=== PATIENT | female | born 1945 | race Caucasian/White ===

== ENCOUNTER 2017-10-14 12:41 | Outpatient (CLI) | payer MEDICARE, OTHER, SELFPAY ==
[2017-10-14] VITALS (7 sets, daily range): BP systolic 106–147; BP diastolic 58–82; PULSE 69–84; RESP 16–24; TEMP 37; O2SAT 98–100
--- NOTE | 2017-10-14 12:48 | DI.RAD.S_ITS ---
PROCEDURE: PAIN L INTERLAMINAR/CAUDAL INJ INDICATIONS: SPINAL STENOSIS FINDINGS: Fluoroscopic spot filming was performed to verify placement of spinal needles at the L5-S1 level(s), as labeled on the films. Appropriate location(s) of the needle tip(s) was confirmed by injection of iodinated contrast. IMPRESSION: Documentation of injection at the L5-S1 level. Dictated by: Andres Kraus M.D. on 10/14/2017 at 15:42 Approved by: Andres Kraus M.D. on 10/14/2017 at 15:42
[2017-10-14] MEDS: MIDAZOLAM 5 MG/5 ML VIAL IV (13:53)
[2017-10-14] MEDS: BUPIVACAINE 0.25% (PF) 30 ML VIAL INJ (14:00)
[2017-10-14] MEDS: methylPREDNISolone acetate 80 MG/ML VIAL INJ (14:01)
[2017-10-14] MEDS: IOPAMIDOL 15 ML VIAL 3 ML INJ (14:01)
[2017-10-14] MEDS: DEXAMETHASONE 10 MG/ML VIAL 20 MG INJ (14:01)
--- NOTE | 2017-10-14 14:12 | P.PCN_ITS ---
Procedures Date/Time Date of procedure: 10/14/17 Time of procedure: 14:10 General Procedure description: PROVIDER: Michael Tolbert DO Operative Note PREOP DIAGNOSIS 1. HNP WITH RADICULAR FEATURES, 2. MULTILEVEL CENTRAL STENOSIS, POST OP DIAGNOSIS 1. HNP WITH RADICULAR FEATURES, 2. MULTILEVEL CENTRAL STENOSIS, PROCEDURES 1. FLUORSCOPICALLY GUIDED CONTRAST CONTROLLED INTERLAMINAR EPIDURAL STEROID INJECTION - L5/S1 PHYSICIAN: Michael Tolbert DO INDICATIONS Darian is referred by for treatment of Bilateral Foraminal Stenosis L >R LE symptoms. FINDINGS Multilevel Central Spinal Stenosis with Nerve Root Compression DESCRIPTION OF PROCEDURE Fluoroscopically guided, contrast-controlled L5/S1 translaminar epidural steroid injection. Following denial of allergy and review of potential side effects and complications, including, but not necessarily limited to, infection, allergic reaction, local tissue breakdown, temporary as well as permanent nerve injury, paralysis, stroke and possible , the patient indicated that the patient understood and agreed to proceed. An informed consent document was signed by the patient, witnessed by a nurse, and placed in the patient's chart. Additionally, other treatment options including modalities, medications, and physical therapy were reviewed with the patient. Per the patient request, IV conscious sedation was administered via 2mg of Versed to patient comfort. The patient's vital signs were monitored throughout the procedure by both the nurse and the physician without significant fluctuation. The patient remained conversant throughout the procedure. In the prone position, following sterile prep and drape of the lumbar region, the L5/S1 translaminar space was identified fluoroscopically. The skin was anesthetized via a 25-gauge, 1.5-inch needle with 1% lidocaine solution. At this point, a 22-gauge short bevel spinal needle was atraumatically introduced and advanced under fluoroscopic guidance into the region of the L5/S1 translaminar space. Depth was confirmed on lateral view. Radiological data, including multiple fluoroscopic views of the lumbar spine, reveal a spinal needle at the L5/S1 translaminar space. Lateral views then show placement of the needle in the epidural space. Subsequent views show contrast material flowing superiorly and inferiorly in the epidural space. No vascular or intrathecal uptake is observed. At this point, using loss of resistance technique with saline and air, the epidural space was entered. This was confirmed following negative aspiration with injection of approximately 1.5 cc of Isovue 200, showing excellent epidural flow without vascular or intrathecal uptake. At this point, 1 cc of 1 % lidocaine solution combined with 3 cc or 20 mg of dexamethasone and 80mg Depo medrol was injected without incident. The patient was then transferred to the recovery area where they were observed for an appropriate period of time after the injection. The patient reported a VAS score of 6 prior to the procedure and a post-procedure VAS of 0. Total Fluoroscopy Time: 11.8 seconds Total Conscious Sedation Time: 24min POST OP INSTRUCTIONS The patient was provided a Pain Log to continue to record their response to the target-specific procedure prior to follow-up visit with their referring physician. Additionally, specific post-injection care instructions and a contact number to our office were provided if concerns arise regarding possible complications associated with the procedure are suspected. Michael Tolbert DO Complications: none
== END 2017-10-14 15:26 | disposition home or self-care (01) ==
PROVIDERS: PCP Internal Medicine; Visit Provider Physical Medicine & Rehabilitation
DX: M48.062 Spinal stenosis, lumbar region with neurogenic claudication (principal); M51.16 Intervertebral disc disorders with radiculopathy, lumbar region; M51.36 Other intervertebral disc degeneration, lumbar region; M41.20 Other idiopathic scoliosis, site unspecified
CPT/HCPCS: 62323; 99152; J1040; J1100; J2250

== ENCOUNTER 2017-12-29 11:18 | Outpatient (CLI) | payer MEDICARE, OTHER, SELFPAY ==
[2017-12-29] VITALS (9 sets, daily range): BP systolic 101–153; BP diastolic 49–68; PULSE 87–95; RESP 15–20; TEMP 36.7; O2SAT 93–100
--- NOTE | 2017-12-29 11:22 | DI.RAD.S_ITS ---
PROCEDURE: PAIN L/S TRANSFORAMINAL INJECT INDICATIONS: Scoliosis with Right LE radic FINDINGS: Fluoroscopic spot filming was performed to verify placement of spinal needles at the L3-L4 level(s), as labeled on the films. Appropriate location(s) of the needle tip(s) was confirmed by injection of iodinated contrast. Note is made of severe scoliosis. IMPRESSION: Fluoroscopy guidance for pain management. Dictated by: Omer Webb M.D. on 12/29/2017 at 14:24 Approved by: Omer Webb M.D. on 12/29/2017 at 14:25
[2017-12-29] MEDS: MIDAZOLAM 5 MG/5 ML VIAL IV (12:05)
[2017-12-29] MEDS: IOPAMIDOL 15 ML VIAL 3 ML INJ (12:17)
[2017-12-29] MEDS: DEXAMETHASONE 10 MG/ML VIAL 20 MG INJ (12:17)
[2017-12-29] MEDS: BUPIVACAINE 0.25% (PF) VIAL 2 ML INJ (12:17)
[2017-12-29] MEDS: methylPREDNISolone acetate 80 MG/ML VIAL INJ (12:17)
--- NOTE | 2017-12-29 12:23 | P.PCN_ITS ---
Procedures Date/Time Date of procedure: 12/29/17 Time of procedure: 12:21 General Procedure description: PROVIDER: Michael Tolbert DO Operative Note PREOP DIAGNOSIS 1. FORAMINAL STENOSIS WITH LE SYMPTOMS, POST OP DIAGNOSIS 1. FORAMINAL STENOSIS WITH LE SYMPTOMS, PROCEDURES 1. FLUOROSCOPICALLY GUIDED CONTRAST CONTROLLED TRANSFORAMINAL EPIDURAL STEROID INJECTION - RIGHT L3/4 TFESI SURGEON: Michael Tolbert, INDICATIONS Darian is referred by Dr. Jose for treatment of Foraminal Stenosis with right LE Symptoms FINDINGS Foraminal Nerve Root Compression secondary to disc disease and facet hypertrophy DESCRIPTION OF PROCEDURE Following denial of allergy and review of potential side effects and complications, including, but not necessarily limited to, infection, allergic reaction, local tissue breakdown, stroke, temporary or permanent nerve injury, paralysis, and possible , the patient indicated that the patient understood and agreed to proceed. An informed consent document was signed by the patient, witnessed by a nurse, and placed in the patient's chart. Additionally, other treatment options including medications, modalities, and physical therapy were reviewed with the patient. After review of previous anaesthesic history and IV conscious sedation the patient was deemed safe to proceed with todays procedure with IV conscious sedation as ASA class II designation. Safety time-out was performed to confirm patient ID, procedure to be performed and site of procedure. IV sedation was accomplished with a combination of 4mg was administered by the RN after DO order , titrated to patient comfort during the course of the procedure while the patient remained responsive to all verbal commands In the prone position following sterile prep and drape of the lumbar region, the right L3/4 posterior neuroforamen was identified fluoroscopically. The skin was anesthetized via a 25-gauge 1.5-inch needle with 1% lidocaine solution. At this point, a 25-gauge 3.5-inch spinal needle was atraumatically introduced and advanced under fluoroscopic guidance through the posterior right L3/4 neuroforamen to approximately the anterior aspect of the canal. Depth was confirmed on lateral view. Following negative aspiration, injection of approximately 1.5 cc of Isovue 200 under live fluoroscopy in the AP view confirmed excellent flow along the nerve root, into the epidural space without vascular or intrathecal uptake observed Radiological data, including multiple fluoroscopic views of the lumbosacral spine, reveal a spinal needle at the right L3/4 posterior neuroforamen. Subsequent views show flow of contrast material flowing superiorly and inferiorly along the nerve root confirming epidural flow. Subsequently, a test dose of 1.5 cc of 1% lidocaine solution was administered and patient was observed for two minutes for signs or symptoms of complications , including abdominal pain, shortness of breath, bilateral upper or lower extremity weakness, nausea and vomiting, prior to steroid injection. At this point, a total of 3 cc or 20 mg of dexamethasone and 80mg Depo medrol was injected without incident. The patient tolerated the procedure well without signs or symptoms of complications prior to transfer to the recovery area continued monitoring without incident. The patient was then transferred to the recovery area where they were observed for an appropriate time after the injection. The patient reported a VAS score of 7 prior to the procedure and a post-procedure VAS of 0. Total Fluoroscopy Time: 24.2 seconds Total Conscious Sedation Time: 24min POST OP INSTRUCTIONS The patient was provided a Pain Log to continue to record their response to the target-specific procedure prior to follow-up visit with their referring physician. Additionally, specific post-injection care instructions and a contact number to our office were provided if concerns arise regarding possible complications associated with the procedure are suspected. Michael Tolbert DO
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
== END 2017-12-29 13:20 ==
LOC: RAD 11:21
PROVIDERS: PCP Internal Medicine; Visit Provider Physical Medicine & Rehabilitation
DX: M48.062 Spinal stenosis, lumbar region with neurogenic claudication (principal); M51.16 Intervertebral disc disorders with radiculopathy, lumbar region; M41.20 Other idiopathic scoliosis, site unspecified
CPT/HCPCS: 64483; 99152; J1040; J1100; J2250

== ENCOUNTER 2018-01-26 12:35 | Outpatient (CLI) | payer MEDICARE, OTHER, SELFPAY ==
[2018-01-26] VITALS (13 sets, daily range): BP systolic 94–135; BP diastolic 35–66; PULSE 70–89; RESP 16–18; TEMP 35.9; O2SAT 96–100
--- NOTE | 2018-01-26 12:37 | DI.RAD.S_ITS ---
PROCEDURE: PAIN L INTERLAMINAR/CAUDAL INJ INDICATIONS: Spinal stenosis with right L4 radicular FINDINGS: Fluoroscopic spot filming was performed to verify placement of spinal needles at the L4-L5 level(s), as labeled on the films. Appropriate location(s) of the needle tip(s) was confirmed by injection of iodinated contrast. IMPRESSION: Fluoroscopy for pain management. Dictated by: Omer Webb M.D. on 01/26/2018 at 16:24 Approved by: Omer Webb M.D. on 01/26/2018 at 16:24
--- NOTE | 2018-01-26 13:10 | P.PCN_ITS ---
Procedures Date/Time Date of procedure: 01/26/18 Time of procedure: 13:07 General Procedure description: PROVIDER: Michael Tolbert DO Operative Note PREOP DIAGNOSIS 1. HNP WITH RADICULAR FEATURES, 2. MULTILEVEL CENTRAL STENOSIS, POST OP DIAGNOSIS 1. HNP WITH RADICULAR FEATURES, 2. MULTILEVEL CENTRAL STENOSIS, PROCEDURES 1. FLUORSCOPICALLY GUIDED CONTRAST CONTROLLED INTERLAMINAR EPIDURAL STEROID INJECTION - L5/S1 PHYSICIAN: Michael Tolbert DO INDICATIONS Darian is referred by Dr. Jose for treatment of Bilateral Foraminal Stenosis L>R LE symptoms. FINDINGS Multilevel Central Spinal Stenosis with Nerve Root Compression DESCRIPTION OF PROCEDURE Fluoroscopically guided, contrast-controlled para right L4/5 translaminar epidural steroid injection. Following denial of allergy and review of potential side effects and complications, including, but not necessarily limited to, infection, allergic reaction, local tissue breakdown, temporary as well as permanent nerve injury, paralysis, stroke and possible , the patient indicated that the patient understood and agreed to proceed. An informed consent document was signed by the patient, witnessed by a nurse, and placed in the patient's chart. Additionally, other treatment options including modalities, medications, and physical therapy were reviewed with the patient. After review of previous anaesthesic history and IV conscious sedation the patient was deemed safe to proceed with todays procedure with IV conscious sedation as ASA class II designation. Safety time-out was performed to confirm patient ID, procedure to be performed and site of procedure. IV sedation was accomplished with a combination of 2mg of Versed administered by the RN after DO order, titrated to patient comfort during the course of the procedure while the patient remained responsive to all verbal commands. In the prone position, following sterile prep and drape of the lumbar region, the L4/5 translaminar space was identified fluoroscopically. The skin was anesthetized via a 25-gauge, 1.5-inch needle with 1% lidocaine solution. At this point, a 22-gauge short bevel spinal needle was atraumatically introduced and advanced under fluoroscopic guidance into the region of the L4/5 translaminar space. Depth was confirmed on lateral view. Radiological data, including multiple fluoroscopic views of the lumbar spine, reveal a spinal needle at the L4/5 translaminar space. Lateral views then show placement of the needle in the epidural space. Subsequent views show contrast material flowing superiorly and inferiorly in the epidural space. No vascular or intrathecal uptake is observed. At this point, using loss of resistance technique with saline and air, the epidural space was entered. This was confirmed following negative aspiration with injection of approximately 1.5 cc of Isovue 200, showing excellent epidural flow without vascular or intrathecal uptake. At this point, 1 cc of 1 % lidocaine solution combined with 3 cc or 20 mg of dexamethasone and 80mg Depo medrol was injected without incident. The patent tolerated the procedure without signs of symptoms of complications prior to transfer to the recovery area for further monitoring. The patient was then transferred to the recovery area where they were observed for an appropriate period of time after the injection. The patient reported a VAS score of 6 prior to the procedure and a post-procedure VAS of 0. Total Fluoroscopy Time: 11.8 seconds Total Conscious Sedation Time: 24min POST OP INSTRUCTIONS The patient was provided a Pain Log to continue to record their response to the target-specific procedure prior to follow-up visit with their referring physician. Additionally, specific post-injection care instructions and a contact number to our office were provided if concerns arise regarding possible complications associated with the procedure are suspected. Michael Tolbert DO Complications: none
[2018-01-26] MEDS: MIDAZOLAM 5 MG/5 ML VIAL IV (13:20)
[2018-01-26] MEDS: BUPIVACAINE 0.25% (PF) VIAL 2 ML INJ (13:28)
[2018-01-26] MEDS: IOPAMIDOL 15 ML VIAL 3 ML INJ (13:29)
[2018-01-26] MEDS: DEXAMETHASONE 10 MG/ML VIAL 20 MG INJ (13:29)
[2018-01-26] MEDS: methylPREDNISolone acetate 80 MG/ML VIAL INJ (13:29)
== END 2018-01-26 14:40 ==
LOC: RAD 12:36
PROVIDERS: PCP Internal Medicine; Visit Provider Physical Medicine & Rehabilitation
DX: M51.16 Intervertebral disc disorders with radiculopathy, lumbar region (principal); M48.062 Spinal stenosis, lumbar region with neurogenic claudication; M41.20 Other idiopathic scoliosis, site unspecified
CPT/HCPCS: 62323; 99152; J1040; J1100; J2250

== ENCOUNTER 2018-05-26 12:36 | Outpatient (CLI) | payer MEDICARE, OTHER, SELFPAY ==
[2018-05-26] VITALS (8 sets, daily range): BP systolic 114–153; BP diastolic 65–77; PULSE 82–88; RESP 16–18; TEMP 37.1; O2SAT 96–100
--- NOTE | 2018-05-26 12:39 | DI.RAD.S_ITS ---
PROCEDURE: PAIN L INTERLAMINAR/CAUDAL INJ INDICATIONS: SPINAL STENOSIS FINDINGS: Fluoroscopic spot filming was performed to verify placement of spinal needles at the L4-L5 level(s), as labeled on the films. Appropriate location(s) of the needle tip(s) was confirmed by injection of iodinated contrast. Dictated by: Isma Baum M.D. on 05/26/2018 at 14:23 Approved by: Isma Baum M.D. on 05/26/2018 at 14:24
[2018-05-26] MEDS: MIDAZOLAM 5 MG/5 ML VIAL IV (13:28)
[2018-05-26] MEDS: IOPAMIDOL 15 ML VIAL 3 ML INJ (13:34)
[2018-05-26] MEDS: BUPIVACAINE 0.25% (PF) VIAL 2 ML INJ (13:34)
[2018-05-26] MEDS: DEXAMETHASONE 10 MG/ML VIAL 20 MG INJ (13:35)
[2018-05-26] MEDS: methylPREDNISolone acetate 80 MG/ML VIAL INJ (13:35)
--- NOTE | 2018-05-26 13:36 | PC.NURSE ---
assisting pt off table and transporting pt to post proc area in stable condition
--- NOTE | 2018-05-26 13:43 | P.PCN_ITS ---
Procedures Date/Time Date of procedure: 05/26/18 Time of procedure: 13:42 General Procedure description: PROVIDER: Michael Tolbert DO Operative Note PREOP DIAGNOSIS 1. HNP WITH RADICULAR FEATURES, 2. MULTILEVEL CENTRAL STENOSIS, POST OP DIAGNOSIS 1. HNP WITH RADICULAR FEATURES, 2. MULTILEVEL CENTRAL STENOSIS PROCEDURES 1. FLUORSCOPICALLY GUIDED CONTRAST CONTROLLED INTERLAMINAR EPIDURAL STEROID INJECTION -L4/5 PHYSICIAN: Michael Tolbert DO INDICATIONS: Darian is referred by Dr. Jose for treatment of Bilateral Foraminal Stenosis R>L LE symptoms. FINDINGS Multilevel Central Spinal Stenosis with Nerve Root Compression DESCRIPTION OF PROCEDURE Fluoroscopically guided, contrast-controlled L4/5 translaminar epidural steroid injection. Following denial of allergy and review of potential side effects and complications, including, but not necessarily limited to, infection, allergic reaction, local tissue breakdown, temporary as well as permanent nerve injury, paralysis, stroke and possible , the patient indicated that the patient understood and agreed to proceed. An informed consent document was signed by the patient, witnessed by a nurse, and placed in the patient's chart. Additionally, other treatment options including modalities, medications, and physical therapy were reviewed with the patient. After review of previous anaesthesic history and IV conscious sedation the patient was deemed safe to proceed with todays procedure with IV conscious sedation as ASA class II designation. Safety time-out was performed to confirm patient ID, procedure to be performed and site of procedure. IV sedation was accomplished with a combination of 3mg was administered by the RN after DO order , titrated to patient comfort during the course of the procedure while the patient remained responsive to all verbal commands In the prone position, following sterile prep and drape of the lumbar region, the L4/5 translaminar space was identified fluoroscopically. The skin was anesthetized via a 25-gauge, 1.5-inch needle with 1% lidocaine solution. At this point, a 22-gauge short bevel spinal needle was atraumatically introduced and advanced under fluoroscopic guidance into the region of the L4/5 translaminar space. Depth was confirmed on lateral view. Radiological data, including multiple fluoroscopic views of the lumbar spine, reveal a spinal needle at the L4/5 translaminar space. Lateral views then show placement of the needle in the epidural space. Subsequent views show contrast material flowing superiorly and inferiorly in the epidural space. No vascular or intrathecal uptake is observed. At this point, using loss of resistance technique with saline and air, the epidural space was entered. This was confirmed following negative aspiration with injection of approximately 1.5 cc of Isovue 200, showing excellent epidural flow without vascular or intrathecal uptake. At this point, 1 cc of 1 % lidocaine solution combined with 3 cc or 20 mg of dexamethasone and 80mg Depo medrol was injected without incident. The patient tolerated the procedure well without signs or symptoms of complications prior to transfer to the recovery area continued monitoring without incident. The patient was then transferred to the recovery area where they were observed for an appropriate period of time after the injection. The patient reported a VAS score of 6 prior to the procedure and a post- procedure VAS of 0. Total Fluoroscopy Time: 11.8 seconds, 8.99 mGy Total Conscious Sedation Time: 24min POST OP INSTRUCTIONS The patient was provided a Pain Log to continue to record their response to the target-specific procedure prior to follow-up visit with their referring physician. Additionally, specific post-injection care instructions and a contact number to our office were provided if concerns arise regarding possible complications associated with the procedure are suspected. Michael Tolbert, DO Complications: none
--- NOTE | 2018-05-26 13:59 | PC.NURSE ---
pt returned from procedure via w/c, awake and alert, able to move from w/c to chair with standby assist. Resumed monitoring from Grecia FRANCES.
== END 2018-05-26 14:32 ==
LOC: RAD 12:38
PROVIDERS: PCP Internal Medicine; Visit Provider Physical Medicine & Rehabilitation
DX: M51.16 Intervertebral disc disorders with radiculopathy, lumbar region (principal); M48.062 Spinal stenosis, lumbar region with neurogenic claudication
CPT/HCPCS: 62323; 99152; J1040; J1100; J2250; J3010

== ENCOUNTER 2018-09-23 14:04 | Outpatient (CLI) | payer MEDICARE, OTHER, SELFPAY ==
[2018-09-23] VITALS (8 sets, daily range): BP systolic 119–154; BP diastolic 58–69; PULSE 77–90; RESP 16–18; TEMP 36.8; O2SAT 97–99
--- NOTE | 2018-09-23 14:08 | DI.RAD.S_ITS ---
PROCEDURE: PAIN L/S TRANSFORAMINAL INJECT INDICATIONS: SPINAL STENOSIS FINDINGS: Fluoroscopic spot filming was performed to verify placement of spinal needles at the right L3-4 transforaminal region as labeled on the films. Appropriate location(s) of the needle tip(s) was confirmed by injection of iodinated contrast. IMPRESSION: Right L3-L4 transforaminal region needle tip localization for perineural epidural steroid injection. Dictated by: Sami Gregorio M.D. on 09/23/2018 at 15:36 Approved by: Sami Gregorio M.D. on 09/23/2018 at 15:37
[2018-09-23] MEDS: MIDAZOLAM 5 MG/5 ML VIAL IV (14:50)
[2018-09-23] MEDS: BUPIVACAINE 0.25% (PF) VIAL 2 ML INJ (14:57)
[2018-09-23] MEDS: DEXAMETHASONE 10 MG/ML VIAL 20 MG INJ (14:57)
[2018-09-23] MEDS: IOPAMIDOL 15 ML VIAL 3 ML INJ (14:58)
[2018-09-23] MEDS: BETAMETHASONE 30 MG/5 ML MDV 6 MG INJ (14:58)
--- NOTE | 2018-09-23 15:11 | PC.NURSE ---
pt tolerated procedure well. Able to get off the table with standby assist. Transferred pt to pre procedure room via wheelchair for continued monitoring with Grecia FRANCES.
--- NOTE | 2018-09-23 15:15 | PM.PROC.1 ---
Procedures Date/Time Date of procedure: 09/23/18 Time of procedure: 15:15 General Procedure description: PROVIDER: Michael Tolbert DO Operative Note PREOP DIAGNOSIS 1. FORAMINAL STENOSIS WITH LE SYMPTOMS, POST OP DIAGNOSIS 1. FORAMINAL STENOSIS WITH LE SYMPTOMS, PROCEDURES 1. FLUOROSCOPICALLY GUIDED CONTRAST CONTROLLED TRANSFORAMINAL EPIDURAL STEROID INJECTION - RIGHT L3/4 TFESI SURGEON: Michael Tolbert, INDICATIONS Darian is referred by Rebeca for treatment of Foraminal Stenosis with right LE Symptoms FINDINGS Foraminal Nerve Root Compression secondary to disc disease and facet hypertrophy DESCRIPTION OF PROCEDURE Following denial of allergy and review of potential side effects and complications, including, but not necessarily limited to, infection, allergic reaction, local tissue breakdown, stroke, temporary or permanent nerve injury, paralysis, and possible , the patient indicated that the patient understood and agreed to proceed. An informed consent document was signed by the patient, witnessed by a nurse, and placed in the patient's chart. Additionally, other treatment options including medications, modalities, and physical therapy were reviewed with the patient. After review of previous anaesthesic history and IV conscious sedation the patient was deemed safe to proceed with todays procedure with IV conscious sedation as ASA class II designation. Safety time-out was performed to confirm patient ID, procedure to be performed and site of procedure. IV sedation was accomplished with a combination of 2mg of Versed and 50mcg of Fentanyl was administered by the RN after DO order, titrated to patient comfort during the course of the procedure while the patient remained responsive to all verbal commands In the prone position following sterile prep and drape of the lumbar region, the right L3/4 posterior neuroforamen was identified fluoroscopically. The skin was anesthetized via a 25-gauge 1.5-inch needle with 1% lidocaine solution. At this point, a 25-gauge 3.5-inch spinal needle was atraumatically introduced and advanced under fluoroscopic guidance through the posterior right L3/4 neuroforamen to approximately the anterior aspect of the canal. Depth was confirmed on lateral view. Following negative aspiration, injection of approximately 5 cc of Isovue 200 under live fluoroscopy in the AP view confirmed excellent flow along the nerve root as well as discogenic uptake, into the epidural space without vascular or intrathecal uptake observed Radiological data, including multiple fluoroscopic views of the lumbosacral spine, reveal a spinal needle at the right L3/4 posterior neuroforamen. Subsequent views show flow of contrast material flowing superiorly and inferiorly along the nerve root confirming epidural flow as well as into the disc space. Subsequently, a test dose of 1.5 cc of 1% lidocaine solution was administered and patient was observed for two minutes for signs or symptoms of complications, including abdominal pain, shortness of breath, bilateral upper or lower extremity weakness, nausea and vomiting, prior to steroid injection. At this point, a total of 3cc or 20mg of dexamethasone and 6mg betamethasone was injected without incident. The patient tolerated the procedure well without signs or symptoms of complications prior to transfer to the recovery area continued monitoring without incident. The patient was then transferred to the recovery area where they were observed for an appropriate time after the injection. The patient reported a VAS score of 7 prior to the procedure and a post-procedure VAS of 0. Total Fluoroscopy Time: 24.2 seconds Total Conscious Sedation Time: 24min POST OP INSTRUCTIONS The patient was provided a Pain Log to continue to record their response to the target-specific procedure prior to follow-up visit with their referring physician. Additionally, specific post-injection care instructions and a contact number to our office were provided if concerns arise regarding possible complications associated with the procedure are suspected. Michael Tolbert, Complications: none
== END 2018-09-23 15:38 | disposition home or self-care (01) ==
LOC: RAD 14:06
PROVIDERS: PCP Internal Medicine; Visit Provider Physical Medicine & Rehabilitation
DX: M48.062 Spinal stenosis, lumbar region with neurogenic claudication (principal); M51.16 Intervertebral disc disorders with radiculopathy, lumbar region
CPT/HCPCS: 64483; 99152; J0702; J1100; J2250; J3010

== ENCOUNTER 2019-02-17 12:51 | Outpatient (CLI) | payer MEDICARE, OTHER, SELFPAY ==
[2019-02-17] VITALS (8 sets, daily range): BP systolic 107–163; BP diastolic 48–75; PULSE 71–79; RESP 14–16; TEMP 37.1; O2SAT 73–98
--- NOTE | 2019-02-17 12:54 | DI.RAD.S_ITS ---
PROCEDURE: PAIN L/S TRANSFORAMINAL INJECT INDICATIONS: SCOLIOSIS FINDINGS: Fluoroscopic spot filming was performed to verify placement of spinal needles at the L3-L4 level(s), as labeled on the films. Appropriate location(s) of the needle tip(s) was confirmed by injection of iodinated contrast. Dictated by: Isma Baum M.D. on 02/17/2019 at 14:52 Approved by: Isma Baum M.D. on 02/17/2019 at 14:52
[2019-02-17] MEDS: fentaNYL 100 MCG/2 ML INJ 50 MCG IV (14:10)
[2019-02-17] MEDS: MIDAZOLAM 5 MG/5 ML VIAL IV (14:10)
[2019-02-17] MEDS: IOPAMIDOL 15 ML VIAL 3 ML INJ (14:13)
[2019-02-17] MEDS: BUPIVACAINE 0.25% (PF) VIAL 2 ML INJ (14:14)
[2019-02-17] MEDS: BETAMETHASONE 30 MG/5 ML MDV 6 MG INJ (14:14)
[2019-02-17] MEDS: DEXAMETHASONE 10 MG/ML VIAL 20 MG INJ (14:14)
--- NOTE | 2019-02-17 14:38 | PC.NURSE ---
Post procedure note: Time out at 1409. Medicated per providers orders. Patient tolerated procedure well. VSS and O2 sat WNL throughout procedure. Sat up and transfered to wheelchair without difficulties. No complaints of pain. 0/10. Denies any numbness or tingling to lower extremities. Transported for post monitoring. Handoff report given to Lyndon Leroy at 1335.
--- NOTE | 2019-03-01 12:47 | PM.PROC.1 ---
Procedures Date/Time Date of procedure: 03/01/19 Time of procedure: 12:47 General Procedure description: PROVIDER: Michael Tolbert DO Operative Note PREOP DIAGNOSIS 1. FORAMINAL STENOSIS WITH LE SYMPTOMS, POST OP DIAGNOSIS 1. FORAMINAL STENOSIS WITH LE SYMPTOMS, PROCEDURES 1. FLUOROSCOPICALLY GUIDED CONTRAST CONTROLLED TRANSFORAMINAL EPIDURAL STEROID INJECTION - RIGHT L3/4 TFESI SURGEON: Michael Tolbert, INDICATIONS Darian is referred by Tiffanie Jose for treatment of Foraminal Stenosis with right LE Symptoms FINDINGS Foraminal Nerve Root Compression secondary to disc disease and facet hypertrophy DESCRIPTION OF PROCEDURE Following review of allergy and review of potential side effects and complications, including, but not necessarily limited to, infection, allergic reaction, local tissue breakdown, stroke, temporary or permanent nerve injury, paralysis, and possible , the patient indicated that the patient understood and agreed to proceed. An informed consent document was signed by the patient, witnessed by a nurse, and placed in the patient's chart. Additionally, other treatment options including medications, modalities, and physical therapy were reviewed with the patient. After review of previous anaesthesic history and IV conscious sedation the patient was deemed safe to proceed with todays procedure with IV conscious sedation as ASA class II designation. Safety time-out was performed to confirm patient ID, procedure to be performed and site of procedure. IV sedation was accomplished with a combination of 2mg of Versed and 50mcg of Fentanyl was administered by the RN after DO order, titrated to patient comfort during the course of the procedure while the patient remained responsive to all verbal commands In the prone position following sterile prep and drape of the lumbar region, the right L3/4 posterior neuroforamen was identified fluoroscopically. The skin was anesthetized via a 25-gauge 1.5-inch needle with 1% lidocaine solution. At this point, a 25-gauge 3.5-inch spinal needle was atraumatically introduced and advanced under fluoroscopic guidance through the posterior right L3/4 neuroforamen to approximately the anterior aspect of the canal. Depth was confirmed on lateral view. Following negative aspiration, injection of approximately 1.5 cc of Isovue 200 under live fluoroscopy in the AP view confirmed excellent flow along the nerve root, into the epidural space without vascular or intrathecal uptake observed Radiological data, including multiple fluoroscopic views of the lumbosacral spine, reveal a spinal needle at the right L3/4 posterior neuroforamen. Subsequent views show flow of contrast material flowing superiorly and inferiorly along the nerve root confirming epidural flow. Subsequently, a test dose of 1.5 cc of 1% lidocaine solution was administered and patient was observed for two minutes for signs or symptoms of complications, including abdominal pain, shortness of breath, bilateral upper or lower extremity weakness, nausea and vomiting, prior to steroid injection. At this point, a total of 3cc or 20mg of dexamethasone and 6mg of betamethasone was injected without incident. The patient tolerated the procedure well without signs or symptoms of complications prior to transfer to the recovery area continued monitoring without incident. The patient was then transferred to the recovery area where they were observed for an appropriate time after the injection. The patient reported a VAS score of 7 prior to the procedure and a post-procedure VAS of 0. Total Fluoroscopy Time: 24.2 seconds Total Conscious Sedation Time: 24min POST OP INSTRUCTIONS The patient was provided a Pain Log to continue to record their response to the target-specific procedure prior to follow-up visit with their referring physician. Additionally, specific post-injection care instructions and a contact number to our office were provided if concerns arise regarding possible complications associated with the procedure are suspected. Michael Tolbert, Complications: none
== END 2019-02-17 15:15 | disposition home or self-care (01) ==
LOC: RAD 12:54
PROVIDERS: PCP Internal Medicine; Visit Provider Physical Medicine & Rehabilitation
DX: M48.062 Spinal stenosis, lumbar region with neurogenic claudication (principal); M51.16 Intervertebral disc disorders with radiculopathy, lumbar region
CPT/HCPCS: 64483; 99152; J0702; J1100; J2250; J3010

== ENCOUNTER 2019-06-21 12:34 | Outpatient (CLI) | payer MEDICARE, OTHER, SELFPAY ==
[2019-06-21] VITALS (9 sets, daily range): BP systolic 102–151; BP diastolic 46–78; PULSE 74–82; RESP 16; TEMP 36.6; O2SAT 95–100
--- NOTE | 2019-06-21 12:38 | DI.RAD.S_ITS ---
PROCEDURE: PAIN L/S TRANSFORAMINAL INJECT INDICATIONS: lumbosacral radiculopathy FINDINGS: Fluoroscopic spot filming was performed to verify placement of spinal needles at the right L3-4 level level(s), as labeled on the films. Appropriate location(s) of the needle tip(s) was confirmed by injection of iodinated contrast. IMPRESSION: Successful needle tip localization for right sided L3-L4 transforaminal epidural steroid injection. Dictated by: Sami Gregorio M.D. on 06/21/2019 at 14:48 Approved by: Sami Gregorio M.D. on 06/21/2019 at 14:48
[2019-06-21] MEDS: MIDAZOLAM 5 MG/5 ML VIAL IV (14:04)
[2019-06-21] MEDS: fentaNYL 100 MCG/2 ML INJ 50 MCG IV (14:04)
[2019-06-21] MEDS: IOPAMIDOL 15 ML VIAL 3 ML INJ (14:14)
[2019-06-21] MEDS: BUPIVACAINE 0.25% (PF) VIAL 2 ML INJ (14:14)
[2019-06-21] MEDS: BETAMETHASONE 30 MG/5 ML MDV 6 MG INJ (14:14)
[2019-06-21] MEDS: DEXAMETHASONE 10 MG/ML VIAL 20 MG INJ (14:14)
--- NOTE | 2019-06-21 14:17 | PC.NURSE ---
ASSISTING PT OFF TABLE AND TRANSPORTING TO POST PROC AREA IN STABLE CONDITION. PASSING RN CARE OF PT OFF TO PAUL Mohan RN.
--- NOTE | 2019-06-21 14:22 | P.PCN_ITS ---
Procedures Date/Time Date of procedure: 06/21/19 Time of procedure: 14:23 General Procedure description: PROVIDER: Michael Tolbert DO Operative Note PREOP DIAGNOSIS 1. FORAMINAL STENOSIS WITH LE SYMPTOMS, POST OP DIAGNOSIS 1. FORAMINAL STENOSIS WITH LE SYMPTOMS, PROCEDURES 1. FLUOROSCOPICALLY GUIDED CONTRAST CONTROLLED TRANSFORAMINAL EPIDURAL STEROID INJECTION - RIGHT L3/4 TFESI SURGEON: Michael Tolbert, INDICATIONS Darian is referred by Dr. Jose for treatment of Foraminal Stenosis with right LE Symptoms FINDINGS Foraminal Nerve Root Compression secondary to disc disease and facet hypertrophy DESCRIPTION OF PROCEDURE Following review of allergy and review of potential side effects and complications, including, but not necessarily limited to, infection, allergic reaction, local tissue breakdown, stroke, temporary or permanent nerve injury, paralysis, and possible , the patient indicated that the patient understood and agreed to proceed. An informed consent document was signed by the patient, witnessed by a nurse, and placed in the patient's chart. Additionally, other treatment options including medications, modalities, and physical therapy were reviewed with the patient. After review of previous anaesthesic history and IV conscious sedation the patient was deemed safe to proceed with todays procedure with IV conscious sedation as ASA class II designation. Safety time-out was performed to confirm patient ID, procedure to be performed and site of procedure. IV sedation was accomplished with a combination of 2mg of Versed and 50mcg of Fentanyl was administered by the RN after DO order, titrated to patient comfort during the course of the procedure while the patient remained responsive to all verbal commands In the prone position following sterile prep and drape of the lumbar region, the right L3/4 posterior neuroforamen was identified fluoroscopically. The skin was anesthetized via a 25-gauge 1.5-inch needle with 1% lidocaine solution. At this point, a 25-gauge 3.5-inch spinal needle was atraumatically introduced and advanced under fluoroscopic guidance through the posterior right L3/4 neuroforamen to approximately the anterior aspect of the canal. Depth was confirmed on lateral view. Following negative aspiration, injection of approximately 1.5 cc of Isovue 200 under live fluoroscopy in the AP view confirmed excellent flow along the nerve root, into the epidural space without vascular or intrathecal uptake observed Radiological data, including multiple fluoroscopic views of the lumbosacral spine, reveal a spinal needle at the right L3/4 posterior neuroforamen. Sub sequent views show flow of contrast material flowing superiorly and inferiorly along the nerve root confirming epidural flow. Subsequently, a test dose of 1.5 cc of 1% lidocaine solution was administered and patient was observed for two minutes for signs or symptoms of complications, including abdominal pain, shortness of breath, bilateral upper or lower extremity weakness, nausea and vomiting, prior to steroid injection. At this point, a total of 3cc or 20mg of dexamethasone and 6mg of betamethasone was injected without incident. The patient tolerated the procedure well without signs or symptoms of complications prior to transfer to the recovery area continued monitoring without incident. The patient was then transferred to the recovery area where they were observed for an appropriate time after the injection. The patient reported a VAS score of 7 prior to the procedure and a post-procedure VAS of 0. Total Fluoroscopy Time: 10 seconds Total Conscious Sedation Time: 24min POST OP INSTRUCTIONS The patient was provided a Pain Log to continue to record their response to the target-specific procedure prior to follow-up visit with their referring physician. Additionally, specific post-injection care instructions and a contact number to our office were provided if concerns arise regarding possible complications associated with the procedure are suspected. Michael Tolbert, Complications: none
--- NOTE | 2019-06-21 14:29 | PC.NURSE ---
1405: Received patient post procedure from Grecia FRANCES via . Awake, alert, and pleasant. VSS upon arrival.
== END 2019-06-21 14:45 | disposition home or self-care (01) ==
LOC: RAD 12:38
PROVIDERS: PCP Internal Medicine; Referring Provider Internal Medicine; Visit Provider Physical Medicine & Rehabilitation
DX: M48.062 Spinal stenosis, lumbar region with neurogenic claudication (principal); M51.16 Intervertebral disc disorders with radiculopathy, lumbar region
CPT/HCPCS: 64483; 99152; J0702; J1100; J2250; J3010

== ENCOUNTER → 2019-10-17 11:34 | Outpatient (CLI) | payer MEDICARE, OTHER, SELFPAY ==
[2019-10-19 00:17] LABS: COVID19 Sendout Not Detected (Not Detect)
== END ==
PROVIDERS: PCP Internal Medicine; Visit Provider Nurse Practitioner
DX: Z01.812 Encounter for preprocedural laboratory examination (principal)
CPT/HCPCS: 87635

== ENCOUNTER 2019-10-20 12:38 | Outpatient (CLI) | payer MEDICARE, OTHER, SELFPAY ==
[2019-10-20] VITALS (9 sets, daily range): BP systolic 107–162; BP diastolic 45–71; PULSE 71–93; RESP 16–17; TEMP 36.9; O2SAT 95–100
--- NOTE | 2019-10-20 12:40 | DI.RAD.S_ITS ---
PROCEDURE: PAIN L/S TRANSFORAMINAL INJECT INDICATIONS: SPONDYLOSIS FINDINGS: Fluoroscopic spot filming was performed to verify placement of spinal needles at the L3-4 level(s), as labeled on the films. Appropriate location(s) of the needle tip(s) was confirmed by injection of iodinated contrast. IMPRESSION: Successful right L3-4 needle tip localization for transforaminal epidural steroid injection. Dictated by: Sami Gregorio M.D. on 10/20/2019 at 14:41 Approved by: Sami Gregorio M.D. on 10/20/2019 at 14:43
[2019-10-20] MEDS: MIDAZOLAM 5 MG/5 ML VIAL IV (13:47)
[2019-10-20] MEDS: fentaNYL 100 MCG/2 ML INJ 50 MCG IV (13:47)
[2019-10-20] MEDS: BETAMETHASONE 30 MG/5 ML MDV 6 MG INJ (13:58)
[2019-10-20] MEDS: BUPIVACAINE 0.25% (PF) VIAL 2 ML INJ (13:58)
[2019-10-20] MEDS: IOPAMIDOL 15 ML VIAL 3 ML INJ (13:58)
[2019-10-20] MEDS: DEXAMETHASONE 10 MG/ML VIAL 20 MG INJ (13:59)
--- NOTE | 2019-10-20 14:01 | P.PCN_ITS ---
Procedures Date/Time Date of procedure: 10/20/19 Time of procedure: 14:01 General Procedure description: PROVIDER: Michael Tolbert DO Operative Note PREOP DIAGNOSIS 1. FORAMINAL STENOSIS WITH LE SYMPTOMS, POST OP DIAGNOSIS 1. FORAMINAL STENOSIS WITH LE SYMPTOMS, PROCEDURES 1. FLUOROSCOPICALLY GUIDED CONTRAST CONTROLLED TRANSFORAMINAL EPIDURAL STEROID INJECTION - RIGHT L3/4 TFESI SURGEON: Michael Tolbert, INDICATIONS Darian is referred by Dr. Jose for treatment of Foraminal Stenosis with right LE Symptoms FINDINGS Foraminal Nerve Root Compression secondary to disc disease and facet hypertrophy DESCRIPTION OF PROCEDURE Following review of allergy and review of potential side effects and complications, including, but not necessarily limited to, infection, allergic reaction, local tissue breakdown, stroke, temporary or permanent nerve injury, paralysis, and possible , the patient indicated that the patient understood and agreed to proceed. An informed consent document was signed by the patient, witnessed by a nurse, and placed in the patient's chart. Additionally, other treatment options including medications, modalities, and physical therapy were reviewed with the patient. After review of previous anaesthesic history and IV conscious sedation the patient was deemed safe to proceed with todays procedure with IV conscious sedation as ASA class II designation. Safety time-out was performed to confirm patient ID, procedure to be performed and site of procedure. IV sedation was accomplished with a combination of 2mg of Versed and 50mcg of Fentanyl was administered by the RN after DO order, titrated to patient comfort during the course of the procedure while the patient remained responsive to all verbal commands In the prone position following sterile prep and drape of the lumbar region, the right L3/4 posterior neuroforamen was identified fluoroscopically. The skin was anesthetized via a 25-gauge 1.5-inch needle with 1% lidocaine solution. At this point, a 25-gauge 3.5-inch spinal needle was atraumatically introduced and advanced under fluoroscopic guidance through the posterior right L3/4 neuroforamen to approximately the anterior aspect of the canal. Depth was confirmed on lateral view. Following negative aspiration, injection of approximately 1.5 cc of Isovue 200 under live fluoroscopy in the AP view confirmed excellent flow along the nerve root, into the epidural space without vascular or intrathecal uptake observed Radiological data, including multiple fluoroscopic views of the lumbosacral spine, reveal a spinal needle at the right L3/4 posterior neuroforamen. Sub sequent views show flow of contrast material flowing superiorly and inferiorly along the nerve root confirming epidural flow. Subsequently, a test dose of 1.5 cc of 1% lidocaine solution was administered and patient was observed for two minutes for signs or symptoms of complications, including abdominal pain, shortness of breath, bilateral upper or lower extremity weakness, nausea and vomiting, prior to steroid injection. At this point, a total of 3cc or 20mg of dexamethasone and 6mg of betamethasone was injected without incident. The patient tolerated the procedure well without signs or symptoms of complications prior to transfer to the recovery area continued monitoring without incident. The patient was then transferred to the recovery area where they were observed for an appropriate time after the injection. The patient reported a VAS score of 7 prior to the procedure and a post-procedure VAS of 0. Total Fluoroscopy Time: 11 seconds Total Conscious Sedation Time: 24min POST OP INSTRUCTIONS The patient was provided a Pain Log to continue to record their response to the target-specific procedure prior to follow-up visit with their referring physician. Additionally, specific post-injection care instructions and a contact number to our office were provided if concerns arise regarding possible complications associated with the procedure are suspected. Michael Tolbert, Complications: none
--- NOTE | 2019-10-20 14:26 | PC.NURSE ---
pt arrived back at pre proc room via . steady on transfer from wc to chair with only minimal assistance. Resumed monitoring by this RN
== END 2019-10-20 14:28 | disposition home or self-care (01) ==
PROVIDERS: PCP Internal Medicine; Referring Provider Physical Medicine & Rehabilitation; Visit Provider Physical Medicine & Rehabilitation
DX: M48.062 Spinal stenosis, lumbar region with neurogenic claudication (principal); M51.16 Intervertebral disc disorders with radiculopathy, lumbar region
CPT/HCPCS: 64483; 99152; J0702; J1100; J2250; J3010

== ENCOUNTER → 2019-11-14 15:40 | Outpatient (CLI) | payer MEDICARE, OTHER, SELFPAY ==
--- NOTE | 2019-11-14 15:41 | DI.RAD.S_ITS ---
PROCEDURE: XR LUMBAR SPINE MIN 4V INDICATIONS: scoliosis TECHNIQUE: 5 views of the lumbar spine were acquired. COMPARISON: None. FINDINGS: Bones: 5 nonrib-bearing vertebrae are present. There is dextroscoliotic bony alignment measuring up to 24 degrees, centered at L1, with associated degenerative disc disease and facet osteoarthritis that is moderately severe over the lumbosacral spine and most pronounced over the lower half. No vertebral body compression fractures. No suspicious bony lesions. Soft tissues: Overlying bowel gas pattern is normal. No suspicious soft tissue calcifications. Oblique images: No pars defects. IMPRESSION: The degenerative disc disease and facet osteoarthritis along the lumbosacral spine is associated with relatively prominent 24 degrees convex rightward scoliosis centered at L1. No trauma is found but there is secondary degenerative change to the degree that significant spinal and foraminal stenosis would be expected especially over the lower half of the LS spine. Dictated by: Sami Gregorio M.D. on 11/14/2019 at 16:50 Approved by: Sami Gregorio M.D. on 11/14/2019 at 16:52
== END ==
PROVIDERS: PCP Internal Medicine; Referring Provider Physical Medicine & Rehabilitation; Visit Provider Physical Medicine & Rehabilitation
DX: M51.17 Intervertebral disc disorders with radiculopathy, lumbosacral region (principal); M47.27 Other spondylosis with radiculopathy, lumbosacral region; M41.86 Other forms of scoliosis, lumbar region; M48.062 Spinal stenosis, lumbar region with neurogenic claudication
CPT/HCPCS: 72110; 99213

== ENCOUNTER → 2020-02-13 13:29 | Outpatient (CLI) | payer MEDICARE, OTHER, SELFPAY ==
[2020-02-14 06:51] LABS: COVID19 Sendout Not Detected (Not Detect)
== END ==
PROVIDERS: PCP Internal Medicine; Visit Provider Physician Assistant
DX: Z01.812 Encounter for preprocedural laboratory examination (principal)
CPT/HCPCS: 87635

== ENCOUNTER 2020-02-16 12:47 | Outpatient (CLI) | payer MEDICARE, OTHER, SELFPAY ==
[2020-02-16] VITALS (8 sets, daily range): BP systolic 115–198; BP diastolic 55–88; PULSE 63–73; RESP 12–19; TEMP 37.2; O2SAT 92–899
--- NOTE | 2020-02-16 12:50 | DI.RAD.S_ITS ---
PROCEDURE: PAIN L/S TRANSFORAMINAL INJECT INDICATIONS: SPONDYLOSIS COMPARISON: [facility], CR, XR LUMBAR SPINE MIN 4V, 11/14/2019, 15:33. [facility], XA, PAIN L/S TRANSFORAMINAL INJECT, 10/20/2019, 12:48. FINDINGS: Fluoroscopic spot filming was performed to verify placement of spinal needles at the L3-L4 level(s), as labeled on the films. Appropriate location(s) of the needle tip(s) was confirmed by injection of iodinated contrast. IMPRESSION: Fluoroscopy for pain management. Dictated by: Omer Webb M.D. on 02/16/2020 at 14:23 Approved by: Omer Webb M.D. on 02/16/2020 at 14:24
[2020-02-16] MEDS: fentaNYL 100 MCG/2 ML INJ 50 MCG IV (13:37)
[2020-02-16] MEDS: MIDAZOLAM 5 MG/5 ML VIAL IV (13:37)
[2020-02-16] MEDS: IOPAMIDOL 15 ML VIAL 3 ML INJ (13:44)
[2020-02-16] MEDS: BUPIVACAINE 0.25% (PF) VIAL 2 ML INJ (13:44)
[2020-02-16] MEDS: DEXAMETHASONE 10 MG/ML VIAL 20 MG INJ (13:45)
[2020-02-16] MEDS: BETAMETHASONE 30 MG/5 ML MDV 6 MG INJ (13:45)
--- NOTE | 2020-02-16 13:57 | PM.PROC.IR.1 ---
Date/Time/Diagnoses Date of procedure: 02/16/20 Time of procedure: 13:57 Pre-procedure diagnosis: 1. FORAMINAL STENOSIS WITH LE SYMPTOMS Post-procedure diagnosis: same Procedure Notes Procedure: 1. FLUOROSCOPICALLY GUIDED CONTRAST CONTROLLED TRANSFORAMINAL EPIDURAL STEROID INJECTION - RIGHT L3/4 TFESI Indications: Darian is referred by Dr. Jose for treatment of Foraminal Stenosis with right LE Symptoms Physician: Michael Tolbert Total Fluoroscopy time (seconds): 14 Total sedation minutes: 17 Complications: none Procedure in detail & Post-procedure care: FINDINGS Foraminal Nerve Root Compression secondary to disc disease and facet hypertrophy DESCRIPTION OF PROCEDURE Following review of allergy and review of potential side effects and complications, including, but not necessarily limited to, infection, allergic reaction, local tissue breakdown, stroke, temporary or permanent nerve injury, paralysis, and possible , the patient indicated that the patient understood and agreed to proceed. An informed consent document was signed by the patient, witnessed by a nurse, and placed in the patient's chart. Additionally, other treatment options including medications, modalities, and physical therapy were reviewed with the patient. After review of previous anaesthesic history and IV conscious sedation the patient was deemed safe to proceed with today?s procedure with IV conscious sedation as ASA class II designation. Safety time-out was performed to confirm patient ID, procedure to be performed and site of procedure. IV sedation was accomplished with a combination of 2mg of Versed and 50mcg of Fentanyl was administered by the RN after DO order, titrated to patient comfort during the course of the procedure while the patient remained responsive to all verbal commands In the prone position following sterile prep and drape of the lumbar region, the right L3/4 posterior neuroforamen was identified fluoroscopically. The skin was anesthetized via a 25-gauge 1.5-inch needle with 1% lidocaine solution. At this point, a 25-gauge 3.5-inch spinal needle was atraumatically introduced and advanced under fluoroscopic guidance through the posterior right L3/4 neuroforamen to approximately the anterior aspect of the canal. Depth was confirmed on lateral view. Following negative aspiration, injection of approximately 1.5 cc of Isovue 200 under live fluoroscopy in the AP view confirmed excellent flow along the nerve root, into the epidural space without vascular or intrathecal uptake observed Radiological data, including multiple fluoroscopic views of the lumbosacral spine, reveal a spinal needle at the right L3/4 posterior neuroforamen. Subsequent views show flow of contrast material flowing superiorly and inferiorly along the nerve root confirming epidural flow. Subsequently, a test dose of 1.5 cc of 1% lidocaine solution was administered and patient was observed for two minutes for signs or symptoms of complications, including abdominal pain, shortness of breath, bilateral upper or lower extremity weakness, nausea and vomiting, prior to steroid injection. At this point, a total of 3cc or 20mg of dexamethasone and 6mg of betamethasone was injected without incident. The patient tolerated the procedure well without signs or symptoms of complications prior to transfer to the recovery area continued monitoring without incident. The patient was then transferred to the recovery area where they were observed for an appropriate time after the injection. The patient reported a VAS score of 7 prior to the procedure and a post-procedure VAS of 0. POST OP INSTRUCTIONS The patient was provided a Pain Log to continue to record their response to the target-specific procedure prior to follow-up visit with their referring physician. Additionally, specific post-injection care instructions and a contact number to our office were provided if concerns arise regarding possible complications associated with the procedure are suspected.
== END 2020-02-16 14:32 | disposition home or self-care (01) ==
LOC: RAD 12:49
PROVIDERS: PCP Internal Medicine; Referring Provider Physical Medicine & Rehabilitation; Visit Provider Physical Medicine & Rehabilitation
DX: M48.062 Spinal stenosis, lumbar region with neurogenic claudication (principal); M51.16 Intervertebral disc disorders with radiculopathy, lumbar region
CPT/HCPCS: 64483; 99152; J0702; J1100; J2250; J3010

== ENCOUNTER → 2020-06-11 13:55 | Outpatient (CLI) | payer MEDICARE, OTHER, SELFPAY ==
[2020-06-11 15:29] LABS: COVID19 -Nasal RAPID Negative (Negative)
== END ==
PROVIDERS: PCP Internal Medicine; Visit Provider Physical Medicine & Rehabilitation
DX: Z20.822 Contact with and (suspected) exposure to COVID-19 (principal)
CPT/HCPCS: 87635; C9803

== ENCOUNTER 2020-06-12 13:02 | Outpatient (CLI) | payer MEDICARE, OTHER, SELFPAY ==
[2020-06-12] VITALS (8 sets, daily range): BP systolic 129–188; BP diastolic 58–82; PULSE 72–77; RESP 16–30; TEMP 36.8; O2SAT 95–100
--- NOTE | 2020-06-12 13:06 | DI.RAD.S_ITS ---
PROCEDURE: PAIN L/S TRANSFORAMINAL INJECT INDICATIONS: SPONDYLOSIS COMPARISON: [facility], , PAIN L/S TRANSFORAMINAL INJECT, 02/16/2020, 13:41. FINDINGS: Fluoroscopic spot filming was performed to verify placement of a spinal needle at the L3-L4 level, as labeled on the films. Appropriate location of the needle tip was confirmed by injection of iodinated contrast. IMPRESSION: Intraprocedural examination within normal limits. Dictated by: Piyush Tillman M.D. on 06/12/2020 at 14:51 Approved by: Piyush Tillman M.D. on 06/12/2020 at 14:51
[2020-06-12] MEDS: fentaNYL 100 MCG/2 ML INJ 50 MCG IV (13:53)
[2020-06-12] MEDS: MIDAZOLAM 5 MG/5 ML VIAL IV (13:53)
[2020-06-12] MEDS: BUPIVACAINE 0.25% (PF) VIAL 2 ML INJ (14:00)
[2020-06-12] MEDS: BETAMETHASONE 30 MG/5 ML MDV 6 MG INJ (14:00)
[2020-06-12] MEDS: DEXAMETHASONE 10 MG/ML VIAL 20 MG INJ (14:01)
[2020-06-12] MEDS: IOPAMIDOL 15 ML VIAL 3 ML INJ (14:01)
--- NOTE | 2020-06-12 14:09 | PM.PROC.IR.1 ---
Date/Time/Diagnoses Date of procedure: 06/12/20 Time of procedure: 14:10 Pre-procedure diagnosis: 1. FORAMINAL STENOSIS WITH LE SYMPTOMS Post-procedure diagnosis: same Procedure Notes Procedure: 1. FLUOROSCOPICALLY GUIDED CONTRAST CONTROLLED TRANSFORAMINAL EPIDURAL STEROID INJECTION - RIGHT L3/4 TFESI Indications: Darian is referred by Dr. Jose for treatment of Foraminal Stenosis with right LE Symptoms Physician: Michael Tolbert Total Fluoroscopy time (seconds): 10 Total sedation minutes: 10 Complications: none Procedure in detail & Post-procedure care: FINDINGS Foraminal Nerve Root Compression secondary to disc disease and facet hypertrophy DESCRIPTION OF PROCEDURE Following review of allergy and review of potential side effects and complications, including, but not necessarily limited to, infection, allergic reaction, local tissue breakdown, stroke, temporary or permanent nerve injury, paralysis, and possible , the patient indicated that the patient understood and agreed to proceed. An informed consent document was signed by the patient, witnessed by a nurse, and placed in the patient's chart. Additionally, other treatment options including medications, modalities, and physical therapy were reviewed with the patient. After review of previous anaesthesic history and IV conscious sedation the patient was deemed safe to proceed with today?s procedure with IV conscious sedation as ASA class II designation. Safety time-out was performed to confirm patient ID, procedure to be performed and site of procedure. IV sedation was accomplished with a combination of 2mg of Versed and 50mcg of Fentanyl was administered by the RN after DO order, titrated to patient comfort during the course of the procedure while the patient remained responsive to all verbal commands In the prone position following sterile prep and drape of the lumbar region, the right L3/4 posterior neuroforamen was identified fluoroscopically. The skin was anesthetized via a 25-gauge 1.5-inch needle with 1% lidocaine solution. At this point, a 25-gauge 3.5-inch spinal needle was atraumatically introduced and advanced under fluoroscopic guidance through the posterior right L3/4 neuroforamen to approximately the anterior aspect of the canal. Depth was confirmed on lateral view. Following negative aspiration, injection of approximately 1.5 cc of Isovue 200 under live fluoroscopy in the AP view confirmed excellent flow along the nerve root, into the epidural space without vascular or intrathecal uptake observed Radiological data, including multiple fluoroscopic views of the lumbosacral spine, reveal a spinal needle at the right L3/4 posterior neuroforamen. Subsequent views show flow of contrast material flowing superiorly and inferiorly along the nerve root confirming epidural flow. Subsequently, a test dose of 1.5 cc of 1% lidocaine solution was administered and patient was observed for two minutes for signs or symptoms of complications, including abdominal pain, shortness of breath, bilateral upper or lower extremity weakness, nausea and vomiting, prior to steroid injection. At this point, a total of 3cc or 20mg of dexamethasone and 6mg of betamethasone was injected without incident. The patient tolerated the procedure well without signs or symptoms of complications prior to transfer to the recovery area continued monitoring without incident. The patient was then transferred to the recovery area where they were observed for an appropriate time after the injection. The patient reported a VAS score of 7 prior to the procedure and a post-procedure VAS of 0. POST OP INSTRUCTIONS The patient was provided a Pain Log to continue to record their response to the target-specific procedure prior to follow-up visit with their referring physician. Additionally, specific post-injection care instructions and a contact number to our office were provided if concerns arise regarding possible complications associated with the procedure are suspected.
--- NOTE | 2020-06-12 14:43 | PC.NURSE ---
Pt has recovered for required sedation time frame- unable to move BLE from Lidocaine. Dr mcelroy aware and at bedside. Pt's ride updated over thephone. Will wait until pt is able to ambulate steadily on her own.
== END 2020-06-12 15:15 | disposition home or self-care (01) ==
LOC: RAD 13:05
PROVIDERS: PCP Internal Medicine; Referring Provider Physical Medicine & Rehabilitation; Visit Provider Physical Medicine & Rehabilitation
DX: M48.062 Spinal stenosis, lumbar region with neurogenic claudication (principal); M51.16 Intervertebral disc disorders with radiculopathy, lumbar region
CPT/HCPCS: 64483; 99152; J0702; J1100; J2250; J3010

== ENCOUNTER → 2020-10-09 08:47 | Outpatient (CLI) | payer MEDICARE, OTHER, SELFPAY ==
[2020-10-09 14:06] LABS: COVID19 -Nasal RAPID Negative (Negative)
== END ==
PROVIDERS: PCP Internal Medicine; Visit Provider Physical Medicine & Rehabilitation
DX: Z20.822 Contact with and (suspected) exposure to COVID-19 (principal)
CPT/HCPCS: 87635; C9803

== ENCOUNTER 2020-10-11 13:35 | Outpatient (CLI) | payer MEDICARE, OTHER, SELFPAY ==
[2020-10-11] VITALS (8 sets, daily range): BP systolic 99–160; BP diastolic 56–79; PULSE 68–76; RESP 11–21; TEMP 36.4; O2SAT 95–100
--- NOTE | 2020-10-11 13:37 | DI.RAD.S_ITS ---
PROCEDURE: PAIN L/S TRANSFORAMINAL INJECT INDICATIONS: SPONDYLOSIS COMPARISON: [facility], , PAIN L/S TRANSFORAMINAL INJECT, 06/12/2020, 13:56. FINDINGS: Fluoroscopic spot filming was performed to verify placement of a spinal needle at the L3-L4 level, as labeled on the films. Appropriate location of the needle tip was confirmed by injection of iodinated contrast. IMPRESSION: Intraprocedural examination within normal limits. Dictated by: Piyush Tillman M.D. on 10/11/2020 at 13:53 Approved by: Piyush Tillman M.D. on 10/11/2020 at 13:54
[2020-10-11] MEDS: MIDAZOLAM 5 MG/5 ML VIAL IV (14:20)
[2020-10-11] MEDS: fentaNYL 100 MCG/2 ML INJ 50 MCG IV (14:20)
[2020-10-11] MEDS: IOPAMIDOL 15 ML VIAL 3 ML INJ (14:23)
[2020-10-11] MEDS: DEXAMETHASONE 10 MG/ML VIAL 20 MG INJ (14:23)
[2020-10-11] MEDS: BUPIVACAINE 0.25% (PF) VIAL 2 ML INJ (14:23)
[2020-10-11] MEDS: BETAMETHASONE 30 MG/5 ML MDV 6 MG INJ (14:24)
--- NOTE | 2020-10-11 14:37 | PM.PROC.IR.1 ---
Date/Time/Diagnoses Date of procedure: 10/11/20 Time of procedure: 14:37 Pre-procedure diagnosis: 1. FORAMINAL STENOSIS WITH LE SYMPTOMS Post-procedure diagnosis: same Procedure Notes Procedure: 1. FLUOROSCOPICALLY GUIDED CONTRAST CONTROLLED TRANSFORAMINAL EPIDURAL STEROID INJECTION - RIGHT L3/4 TFESI Indications: Darian is referred by Dr. Jose for treatment of Foraminal Stenosis with right LE Symptoms Physician: Michael Tolbert Total Fluoroscopy time (seconds): 12 Total sedation minutes: 12 Complications: none Procedure in detail & Post-procedure care: FINDINGS Foraminal Nerve Root Compression secondary to disc disease and facet hypertrophy DESCRIPTION OF PROCEDURE Following review of allergy and review of potential side effects and complications, including, but not necessarily limited to, infection, allergic reaction, local tissue breakdown, stroke, temporary or permanent nerve injury, paralysis, and possible , the patient indicated that the patient understood and agreed to proceed. An informed consent document was signed by the patient, witnessed by a nurse, and placed in the patient's chart. Additionally, other treatment options including medications, modalities, and physical therapy were reviewed with the patient. After review of previous anaesthesic history and IV conscious sedation the patient was deemed safe to proceed with today?s procedure with IV conscious sedation as ASA class II designation. Safety time-out was performed to confirm patient ID, procedure to be performed and site of procedure. IV sedation was accomplished with a combination of 2mg of Versed and 50mcg of Fentanyl was administered by the RN after DO order, titrated to patient comfort during the course of the procedure while the patient remained responsive to all verbal commands In the prone position following sterile prep and drape of the lumbar region, the right L3/4 posterior neuroforamen was identified fluoroscopically. The skin was anesthetized via a 25-gauge 1.5-inch needle with 1% lidocaine solution. At this point, a 25-gauge 3.5-inch spinal needle was atraumatically introduced and advanced under fluoroscopic guidance through the posterior right L3/4 neuroforamen to approximately the anterior aspect of the canal. Depth was confirmed on lateral view. Following negative aspiration, injection of approximately 1.5 cc of Isovue 200 under live fluoroscopy in the AP view confirmed excellent flow along the nerve root, into the epidural space without vascular or intrathecal uptake observed Radiological data, including multiple fluoroscopic views of the lumbosacral spine, reveal a spinal needle at the right L3/4 posterior neuroforamen. Subsequent views show flow of contrast material flowing superiorly and inferiorly along the nerve root confirming epidural flow. Subsequently, a test dose of 1.5 cc of 1% lidocaine solution was administered and patient was observed for two minutes for signs or symptoms of complications, including abdominal pain, shortness of breath, bilateral upper or lower extremity weakness, nausea and vomiting, prior to steroid injection. At this point, a total of 3cc or 20mg of dexamethasone and 6mg of betamethasone was injected without incident. The patient tolerated the procedure well without signs or symptoms of complications prior to transfer to the recovery area continued monitoring without incident. The patient was then transferred to the recovery area where they were observed for an appropriate time after the injection. The patient reported a VAS score of 7 prior to the procedure and a post-procedure VAS of 0. POST OP INSTRUCTIONS The patient was provided a Pain Log to continue to record their response to the target-specific procedure prior to follow-up visit with their referring physician. Additionally, specific post-injection care instructions and a contact number to our office were provided if concerns arise regarding possible complications associated with the procedure are suspected.
== END 2020-10-11 15:00 | disposition home or self-care (01) ==
LOC: RAD 13:36
PROVIDERS: PCP Internal Medicine; Referring Provider Physical Medicine & Rehabilitation; Visit Provider Physical Medicine & Rehabilitation
DX: M48.061 Spinal stenosis, lumbar region without neurogenic claudication (principal); M51.16 Intervertebral disc disorders with radiculopathy, lumbar region
CPT/HCPCS: 64483; 99152; J0702; J1040; J1100; J2250; J3010

== ENCOUNTER → 2020-11-12 09:49 | Outpatient (CLI) | payer MEDICARE, OTHER, SELFPAY ==
[2020-11-12 15:36] LABS: COVID19 -Nasal RAPID Negative (Negative)
== END ==
PROVIDERS: PCP Internal Medicine; Visit Provider Physical Medicine & Rehabilitation
DX: Z20.822 Contact with and (suspected) exposure to COVID-19 (principal)
CPT/HCPCS: 87635; C9803

== ENCOUNTER 2020-11-13 12:48 | Outpatient (CLI) | payer MEDICARE, OTHER, SELFPAY ==
[2020-11-13] VITALS (9 sets, daily range): BP systolic 90–147; BP diastolic 49–74; PULSE 65–95; RESP 13–20; TEMP 36.3–36.4; O2SAT 92–96
--- NOTE | 2020-11-13 12:51 | DI.RAD.S_ITS ---
PROCEDURE: PAIN L INTERLAMINAR/CAUDAL INJ INDICATIONS: SPONDYLOSIS COMPARISON: [facility], XA, PAIN L INTERLAMINAR/CAUDAL INJ, 05/26/2018, 13:32. [facility], XA, PAIN L/S TRANSFORAMINAL INJECT, 10/11/2020, 14:24. FINDINGS: Fluoroscopic spot filming was performed to verify placement of a spinal needle at the L3-L4 level, as labeled on the films. Appropriate location of the needle tip was confirmed by injection of iodinated contrast. IMPRESSION: Intraprocedural examination within normal limits. Dictated by: Piyush Tillman M.D. on 11/13/2020 at 14:21 Approved by: Piyush Tillman M.D. on 11/13/2020 at 14:21
[2020-11-13] MEDS: fentaNYL 100 MCG/2 ML INJ 50 MCG IV (14:38)
[2020-11-13] MEDS: MIDAZOLAM 5 MG/5 ML VIAL IV (14:39)
--- NOTE | 2020-11-13 14:42 | P.PCN_ITS ---
Date/Time/Diagnoses Date of procedure: 11/13/20 Time of procedure: 14:42 Pre-procedure diagnosis: 1. HNP WITH RADICULAR FEATURES, 2. MULTILEVEL CENTRAL STENOSIS, Post-procedure diagnosis: same Procedure Notes Procedure: 1. FLUOROSCOPICALLY GUIDED CONTRAST CONTROLLED INTERLAMINAR EPIDURAL STEROID INJECTION - L3/4 Indications: Darian is referred by Dr. Jose for treatment of Bilateral Foraminal Stenosis L>R LE symptoms. Physician: Michael Tolbert Total Fluoroscopy time (seconds): 15 Total sedation minutes: 10 Complications: none Procedure in detail & Post-procedure care: FINDINGS Multilevel Central Spinal Stenosis with Nerve Root Compression DESCRIPTION OF PROCEDURE Fluoroscopically guided, contrast-controlled L3/4 translaminar epidural steroid injection. Following review of allergy and review of potential side effects and complications, including, but not necessarily limited to, infection, allergic reaction, local tissue breakdown, temporary as well as permanent nerve injury, paralysis, stroke and possible , the patient indicated that the patient understood and agreed to proceed. An informed consent document was signed by the patient, witnessed by a nurse, and placed in the patient's chart. Additionally, other treatment options including modalities, medications, and physical therapy were reviewed with the patient. After review of previous anaesthesic history and IV conscious sedation the patient was deemed safe to proceed with today?s procedure with IV conscious sedation as ASA class II designation. Safety time-out was performed to confirm patient ID, procedure to be performed and site of procedure. IV sedation was accomplished with a combination of 2mg of Versed and 50mcg of Fentanyl was administered by the RN after DO order, titrated to patient comfort during the course of the procedure while the patient remained responsive to all verbal commands. In the prone position, following sterile prep and drape of the lumbar region, the L3/4 translaminar space was identified fluoroscopically. The skin was anesthetized via a 25-gauge, 1.5-inch needle with 1% lidocaine solution. At this point, a 22-gauge short bevel spinal needle was atraumatically introduced and advanced under fluoroscopic guidance into the region of the L3/4 translaminar space. Depth was confirmed on lateral view. Radiological data, including multiple fluoroscopic views of the lumbar spine, reveal a spinal needle at the L3/4 translaminar space. Lateral views then show placement of the needle in the epidural space. Subsequent views show contrast material flowing superiorly and inferiorly in the epidural space. No vascular or intrathecal uptake is observed. At this point, using loss of resistance technique with saline and air, the epidural space was entered. This was confirmed following negative aspiration with injection of approximately 1.5 cc of Isovue 200, showing excellent epidural flow without vascular or intrathecal uptake. At this point, 1cc of 1% lidocaine solution combined with 3cc or 20mg of dexamethasone and 6mg of betamethasone was injected without incident. The patient tolerated the procedure well without signs or symptoms of complications prior to transfer to the recovery area continued monitoring without incident. The patient was then transferred to the recovery area where they were observed for an appropriate period of time after the injection. The patient reported a VAS score of 6 prior to the procedure and a post- procedure VAS of 0. POST OP INSTRUCTIONS The patient was provided a Pain Log to continue to record their response to the target-specific procedure prior to follow-up visit with their referring physician. Additionally, specific post-injection care instructions and a contact number to our office were provided if concerns arise regarding possible complications associated with the procedure are suspected.
--- NOTE | 2020-11-13 16:35 | PC.NURSE ---
pt held due to numbness to lower extremities. Encouraged to preform ankle waving to help increase the flow thru her lower ext. Pt discharged with full feeling to BLE
== END 2020-11-13 16:38 | disposition home or self-care (01) ==
LOC: RAD 12:50
PROVIDERS: PCP Internal Medicine; Referring Provider Physical Medicine & Rehabilitation; Visit Provider Physical Medicine & Rehabilitation
DX: M51.16 Intervertebral disc disorders with radiculopathy, lumbar region (principal); M48.061 Spinal stenosis, lumbar region without neurogenic claudication
CPT/HCPCS: 62323; 99152; J0702; J2250; J3010

== ENCOUNTER → 2021-03-11 12:58 | Outpatient (CLI) | payer MEDICARE, OTHER, SELFPAY ==
[2021-03-11 16:22] LABS: COVID19 -Nasal RAPID Negative (Negative)
== END ==
PROVIDERS: PCP Internal Medicine; Referring Provider Physical Medicine & Rehabilitation; Visit Provider Physical Medicine & Rehabilitation
DX: Z20.822 Contact with and (suspected) exposure to COVID-19 (principal)
CPT/HCPCS: 87635; C9803

== ENCOUNTER 2021-03-14 06:53 | Outpatient (CLI) | payer MEDICARE, OTHER, SELFPAY ==
[2021-03-14] VITALS (8 sets, daily range): BP systolic 120–201; BP diastolic 59–91; PULSE 64–69; RESP 16–23; TEMP 37.2; O2SAT 94–100
--- NOTE | 2021-03-14 06:56 | DI.RAD.S_ITS ---
PROCEDURE: PAIN L INTERLAMINAR/CAUDAL INJ INDICATIONS: SPONDYLOSIS COMPARISON: [facility], , PAIN L INTERLAMINAR/CAUDAL INJ, 11/13/2020, 14:31. FINDINGS: Fluoroscopic spot filming was performed to verify placement of a spinal needle at the L3-L4 level, as labeled on the films. Appropriate location of the needle tip was confirmed by injection of iodinated contrast. IMPRESSION: Intraprocedural examination within normal limits. Dictated by: Piyush Tillman M.D. on 03/14/2021 at 8:24 Approved by: Piyush Tillman M.D. on 03/14/2021 at 8:25
[2021-03-14] MEDS: fentaNYL 100 MCG/2 ML INJ 50 MCG IV (08:18)
[2021-03-14] MEDS: IOPAMIDOL 15 ML VIAL 3 ML INJ (08:22)
[2021-03-14] MEDS: MIDAZOLAM 5 MG/5 ML VIAL IV (08:23)
[2021-03-14] MEDS: BUPIVACAINE 0.25% (PF) VIAL 30 ML (08:25)
[2021-03-14] MEDS: BETAMETHASONE 30 MG/5 ML MDV 12 MG INJ (08:25)
[2021-03-14] MEDS: DEXAMETHASONE 10 MG/ML VIAL 20 MG INJ (08:26)
--- NOTE | 2021-03-14 08:36 | P.PCN_ITS ---
Date/Time/Diagnoses Date of procedure: 03/14/21 Time of procedure: 08:36 Pre-procedure diagnosis: 1. HNP WITH RADICULAR FEATURES, 2. MULTILEVEL CENTRAL STENOSIS, Post-procedure diagnosis: same Procedure Notes Procedure: 1. FLUOROSCOPICALLY GUIDED CONTRAST CONTROLLED INTERLAMINAR EPIDURAL STEROID INJECTION - L3/4 Indications: Darian is referred by Dr. Jose for treatment of Bilateral Foraminal Stenosis L>R LE symptoms. Physician: Michael Tolbert Total Fluoroscopy time (seconds): 12 Total sedation minutes: 11 Complications: none Procedure in detail & Post-procedure care: FINDINGS Multilevel Central Spinal Stenosis with Nerve Root Compression DESCRIPTION OF PROCEDURE Fluoroscopically guided, contrast-controlled L3/4 translaminar epidural steroid injection. Following review of allergy and review of potential side effects and complications, including, but not necessarily limited to, infection, allergic reaction, local tissue breakdown, temporary as well as permanent nerve injury, paralysis, stroke and possible , the patient indicated that the patient understood and agreed to proceed. An informed consent document was signed by the patient, witnessed by a nurse, and placed in the patient's chart. Additionally, other treatment options including modalities, medications, and physical therapy were reviewed with the patient. After review of previous anaesthesic history and IV conscious sedation the patient was deemed safe to proceed with today?s procedure with IV conscious sedation as ASA class II designation. Safety time-out was performed to confirm patient ID, procedure to be performed and site of procedure. IV sedation was accomplished with a combination of 3mg of Versed and 50mcg of Fentanyl was administered by the RN after DO order, titrated to patient comfort during the course of the procedure while the patient remained responsive to all verbal commands. In the prone position, following sterile prep and drape of the lumbar region, the L3/4 translaminar space was identified fluoroscopically. The skin was anesthetized via a 25-gauge, 1.5-inch needle with 1% lidocaine solution. At this point, a 22-gauge short bevel spinal needle was atraumatically introduced and advanced under fluoroscopic guidance into the region of the L3/4 translaminar space. Depth was confirmed on lateral view. Radiological data, including multiple fluoroscopic views of the lumbar spine, reveal a spinal needle at the L3/4 translaminar space. Lateral views then show placement of the needle in the epidural space. Subsequent views show contrast material flowing superiorly and inferiorly in the epidural space. No vascular or intrathecal uptake is observed. At this point, using loss of resistance technique with saline and air, the epidural space was entered. This was confirmed following negative aspiration with injection of approximately 1.5 cc of Isovue 200, showing excellent epidural flow without vascular or intrathecal uptake. At this point, 1cc of 1% lidocaine solution combined with 3cc or 20mg of dexamethasone and 6mg of betamethasone was injected without incident. The patient tolerated the procedure well without signs or symptoms of complications prior to transfer to the recovery area continued monitoring without incident. The patient was then transferred to the recovery area where they were observed for an appropriate period of time after the injection. The patient reported a VAS score of 6 prior to the procedure and a post- procedure VAS of 0. POST OP INSTRUCTIONS The patient was provided a Pain Log to continue to record their response to the target-specific procedure prior to follow-up visit with their referring physician. Additionally, specific post-injection care instructions and a contact number to our office were provided if concerns arise regarding possible complications associated with the procedure are suspected.
== END 2021-03-14 09:12 | disposition home or self-care (01) ==
LOC: RAD 06:55
PROVIDERS: PCP Internal Medicine; Referring Provider Physical Medicine & Rehabilitation; Visit Provider Physical Medicine & Rehabilitation
DX: M51.16 Intervertebral disc disorders with radiculopathy, lumbar region (principal); M48.061 Spinal stenosis, lumbar region without neurogenic claudication
CPT/HCPCS: 62323; 99152; J0702; J1100; J2250; J3010

== ENCOUNTER → 2021-05-04 12:56 | Outpatient (CLI) | payer MEDICARE, OTHER, SELFPAY ==
--- NOTE | 2021-05-04 12:57 | DI.MRI.S_ITS ---
PROCEDURE: MR LUMBAR SPINE WO CON INDICATIONS: Scoliosis with right LE L3/4 radic TECHNIQUE: Noncontrast sagittal T1 spin echo and T2 fast echo, sagittal STIR, axial T1 and T2 fast spin echo through the lumbar spine. In cases with scoliosis, additional coronal T2 fast spin echo may be performed. COMPARISON: [facility], MR, MR LUMBAR SPINE WO CON, 12/03/2016, 15:49. [facility], CR, XR LUMBAR SPINE MIN 4V, 11/14/2019, 15:33. FINDINGS: Image quality: Excellent. Alignment and Curvature: There is marked rightward scoliotic curvature with apex at L1-L2, more prominent when compared to prior exam. There is grade 1 anterolisthesis of L4 on L5, 1-2 mm, grade 1 retrolisthesis of L3 on L4, 3 mm as well as grade 1 retrolisthesis, 3 mm of L2 on L3. Bone Marrow: Marrow is of normal overall signal. Moderate reactive endplate changes are present at T12-L1. No acute vertebral body compression fractures. Spinal Cord: Conus medullaris terminates at the L2 level. Visualized cord demonstrates normal signal and size. Paraspinous Soft Tissues: No paravertebral masses. Simple renal cysts are noted bilaterally. Discs: Moderate to severe desiccation is present most severe at L2-3, L3-4 and L4-5. T12-L1: No disc bulge or spinal stenosis. Mild left foraminal narrowing. L1-L2: Mild disc bulge without spinal stenosis. Moderate left foraminal narrowing with facet and ligamentum flavum hypertrophy, progressive. L2-L3: Mild disc bulge without spinal stenosis. Moderate to severe bilateral foraminal narrowing with facet hypertrophy, progressive. L3-L4: Mild disc bulge with mild to moderate spinal stenosis, minimally progressive. Previous right posterior paracentral disc extrusion is unchanged. [id number] left and severe right foraminal narrowing with facet and ligamentum flavum hypertrophy. There is compression of the exiting right L3 nerve roots. There is notable progression on the left. L4-L5: Mild disc bulge with moderate to severe spinal stenosis. Severe right foraminal narrowing with nerve root compression of the exiting right L4 nerve roots. [id number] left foraminal narrowing with facet and ligamentum flavum hypertrophy, relatively stable. L5-S1: Mild disc bulge without spinal stenosis. Moderate left and mild right foraminal narrowing with facet and ligamentum flavum hypertrophy, progressive. IMPRESSION: 1. Significant scoliotic curvature progressive compared to prior exam. 2. Multilevel foraminal narrowing, progressive at multiple levels as described above remaining most severe at L3-4, L4-5 with nerve root compression. 3. Multilevel foraminal narrowing most severe at L4-5 secondary to disc bulge with contributing effect of facet/ligamentum flavum arthropathy as well as scoliotic curvature. Dictated by: Monique Montalvo M.D. on 05/06/2021 at 15:59 Approved by: Monique Montalvo M.D. on 05/06/2021 at 16:13
== END ==
PROVIDERS: PCP Internal Medicine; Referring Provider Physical Medicine & Rehabilitation; Visit Provider Physical Medicine & Rehabilitation
DX: M51.16 Intervertebral disc disorders with radiculopathy, lumbar region (principal); M51.17 Intervertebral disc disorders with radiculopathy, lumbosacral region; M41.20 Other idiopathic scoliosis, site unspecified; M48.061 Spinal stenosis, lumbar region without neurogenic claudication
CPT/HCPCS: 72148

== ENCOUNTER → 2021-06-18 10:48 | Outpatient (CLI) | payer MEDICARE, OTHER, SELFPAY ==
[2021-06-18 14:00] LABS: COVID19 -Nasal RAPID Negative (Negative)
== END ==
PROVIDERS: PCP Internal Medicine; Visit Provider Physical Medicine & Rehabilitation
DX: Z20.822 Contact with and (suspected) exposure to COVID-19 (principal)
CPT/HCPCS: 87635; C9803

== ENCOUNTER 2021-06-20 08:27 | Outpatient (CLI) | payer MEDICARE, OTHER, SELFPAY ==
[2021-06-20] VITALS (8 sets, daily range): BP systolic 104–119; BP diastolic 45–77; PULSE 72–79; RESP 14–25; TEMP 36.4; O2SAT 95–99
--- NOTE | 2021-06-20 08:30 | DI.RAD.S_ITS ---
PROCEDURE: PAIN L/S TRANSFORAMINAL INJECT INDICATIONS: SPONDYLOSIS COMPARISON: [facility], XA, PAIN L INTERLAMINAR/CAUDAL INJ, 03/14/2021, 9:18. [facility], XA, PAIN L INTERLAMINAR/CAUDAL INJ, 11/13/2020, 14:31. [facility], XA, PAIN L/S TRANSFORAMINAL INJECT, 10/11/2020, 14:24. FINDINGS: Fluoroscopic spot filming was performed to verify placement of a spinal needle at the L3-L4 level, as labeled on the films. Appropriate location of the needle tip was confirmed by injection of iodinated contrast. IMPRESSION: Intraprocedural examination within normal limits. Dictated by: Piyush Tillman M.D. on 06/20/2021 at 8:50 Approved by: Piyush Tillman M.D. on 06/20/2021 at 8:50
[2021-06-20] MEDS: MIDAZOLAM 5 MG/5 ML VIAL IV (09:00)
[2021-06-20] MEDS: fentaNYL 250 MCG/5 ML INJ (09:00)
[2021-06-20] MEDS: DEXAMETHASONE 10 MG/ML VIAL 20 MG INJ (09:07)
[2021-06-20] MEDS: IOPAMIDOL 15 ML VIAL 3 ML INJ (09:07)
[2021-06-20] MEDS: LIDOCAINE 2% INJ MDV 20 ML (09:07)
[2021-06-20] MEDS: BETAMETHASONE 30 MG/5 ML MDV 6 MG INJ (09:07)
--- NOTE | 2021-06-20 09:22 | PM.PROC.IR.1 ---
Date/Time/Diagnoses Date of procedure: 06/20/21 Time of procedure: 09:22 Pre-procedure diagnosis: 1. FORAMINAL STENOSIS WITH LE SYMPTOMS Post-procedure diagnosis: same Procedure Notes Procedure: 1. FLUOROSCOPICALLY GUIDED CONTRAST CONTROLLED TRANSFORAMINAL EPIDURAL STEROID INJECTION - RIGHT L3/4 TFESI Indications: Darian is referred by Dr. Jose for treatment of Foraminal Stenosis with right LE Symptoms Physician: Michael Tolbert Total Fluoroscopy time (seconds): 11 Total sedation minutes: 15 Complications: none Procedure in detail & Post-procedure care: FINDINGS Foraminal Nerve Root Compression secondary to disc disease and facet hypertrophy DESCRIPTION OF PROCEDURE Following review of allergy and review of potential side effects and complications, including, but not necessarily limited to, infection, allergic reaction, local tissue breakdown, stroke, temporary or permanent nerve injury, paralysis, and possible , the patient indicated that the patient understood and agreed to proceed. An informed consent document was signed by the patient, witnessed by a nurse, and placed in the patient's chart. Additionally, other treatment options including medications, modalities, and physical therapy were reviewed with the patient. After review of previous anaesthesic history and IV conscious sedation the patient was deemed safe to proceed with today?s procedure with IV conscious sedation as ASA class II designation. Safety time-out was performed to confirm patient ID, procedure to be performed and site of procedure. IV sedation was accomplished with a combination of 1mg of Versed and 50mcg of Fentanyl was administered by the RN after DO order, titrated to patient comfort during the course of the procedure while the patient remained responsive to all verbal commands In the prone position following sterile prep and drape of the lumbar region, the right L3/4 posterior neuroforamen was identified fluoroscopically. The skin was anesthetized via a 25-gauge 1.5-inch needle with 1% lidocaine solution. At this point, a 25-gauge 3.5-inch spinal needle was atraumatically introduced and advanced under fluoroscopic guidance through the posterior right L3/4 neuroforamen to approximately the anterior aspect of the canal. Depth was confirmed on lateral view. Following negative aspiration, injection of approximately 1.5 cc of Isovue 200 under live fluoroscopy in the AP view confirmed excellent flow along the nerve root, into the epidural space without vascular or intrathecal uptake observed Radiological data, including multiple fluoroscopic views of the lumbosacral spine, reveal a spinal needle at the right L3/4 posterior neuroforamen. Subsequent views show flow of contrast material flowing superiorly and inferiorly along the nerve root confirming epidural flow. Subsequently, a test dose of 1.5 cc of 1% lidocaine solution was administered and patient was observed for two minutes for signs or symptoms of complications, including abdominal pain, shortness of breath, bilateral upper or lower extremity weakness, nausea and vomiting, prior to steroid injection. At this point, a total of 3cc or 20mg of dexamethasone and 6mg of betamethasone was injected without incident. The patient tolerated the procedure well without signs or symptoms of complications prior to transfer to the recovery area continued monitoring without incident. The patient was then transferred to the recovery area where they were observed for an appropriate time after the injection. The patient reported a VAS score of 7 prior to the procedure and a post-procedure VAS of 0. POST OP INSTRUCTIONS The patient was provided a Pain Log to continue to record their response to the target-specific procedure prior to follow-up visit with their referring physician. Additionally, specific post-injection care instructions and a contact number to our office were provided if concerns arise regarding possible complications associated with the procedure are suspected.
== END 2021-06-20 09:34 | disposition home or self-care (01) ==
PROVIDERS: PCP Internal Medicine; Referring Provider Physical Medicine & Rehabilitation; Visit Provider Physical Medicine & Rehabilitation
DX: M48.061 Spinal stenosis, lumbar region without neurogenic claudication (principal); M51.16 Intervertebral disc disorders with radiculopathy, lumbar region
CPT/HCPCS: 64483; 99152; J0702; J1100; J2250; J3010

== ENCOUNTER → 2021-09-11 11:14 | Outpatient (CLI) | payer MEDICARE, OTHER, SELFPAY ==
--- NOTE | 2021-09-11 11:16 | DI.RAD.S_ITS ---
PROCEDURE: XR LUMBAR SPINE MIN 4V INDICATIONS: BACK PAIN TECHNIQUE: 4 views of the lumbar spine acquired, including flexion and extension views. COMPARISON: [facility], CR, XR LUMBAR SPINE MIN 4V, 11/14/2019, 15:33. FINDINGS: Bones: 4 nonrib-bearing vertebrae are present. Examination is limited by severe dextroscoliosis centered at the L1 level. Within these limits, multilevel disc degeneration, most notably at the L2-L3 and L3-L4 levels. Moderate L3-L4, L4-L5 and L5-S1 facet joint arthropathy. Left hip arthroplasty incompletely visualized. Soft tissues: Overlying bowel gas pattern is normal. No suspicious soft tissue calcifications. Vascular calcifications indicate atherosclerosis. IMPRESSION: 1. Exam limited by dextroscoliosis centered at the L1 level. 2. Multilevel spondylosis similar prior examination. Dictated by: Lewis Stockton [facility] Interpreted: Jeff Escalera MD on 09/11/2021 at 13:14 Transcribed by: JORDYN on 09/11/2021 at 13:17 Approved by: Jeff Escalera M.D. on 09/11/2021 at 15:14
== END ==
PROVIDERS: PCP Internal Medicine; Referring Provider Physical Medicine & Rehabilitation; Visit Provider Physical Medicine & Rehabilitation
DX: M47.27 Other spondylosis with radiculopathy, lumbosacral region (principal); M48.062 Spinal stenosis, lumbar region with neurogenic claudication; M47.26 Other spondylosis with radiculopathy, lumbar region; M41.86 Other forms of scoliosis, lumbar region; I67.1 Cerebral aneurysm, nonruptured; F17.210 Nicotine dependence, cigarettes, uncomplicated
CPT/HCPCS: 72110; 99214

== ENCOUNTER → 2021-09-17 13:24 | Outpatient (CLI) | payer MEDICARE, OTHER, SELFPAY ==
[2021-09-17 15:02] LABS: COVID19 -Nasal RAPID Negative (Negative)
== END ==
PROVIDERS: PCP Internal Medicine; Visit Provider Physical Medicine & Rehabilitation
DX: Z20.822 Contact with and (suspected) exposure to COVID-19 (principal)
CPT/HCPCS: 87635; C9803

== ENCOUNTER 2021-09-19 10:50 | Outpatient (CLI) | payer MEDICARE, OTHER, SELFPAY ==
[2021-09-19] VITALS (9 sets, daily range): BP systolic 123–205; BP diastolic 57–86; PULSE 70–75; RESP 17–25; TEMP 36.7; O2SAT 94–100
--- NOTE | 2021-09-19 10:52 | DI.RAD.S_ITS ---
PROCEDURE: PAIN L INTERLAMINAR/CAUDAL INJ INDICATIONS: SPONDYLOSIS COMPARISON: [facility], , PAIN L INTERLAMINAR/CAUDAL INJ, 03/14/2021, 9:18. FINDINGS: Fluoroscopic spot filming was performed to verify placement of a spinal needle at the L3-L4 level, as labeled on the films. Appropriate location of the needle tip was confirmed by injection of iodinated contrast. IMPRESSION: Intraprocedural examination within normal limits. Dictated by: Piyush Tilmlan M.D. on 09/19/2021 at 13:22 Approved by: Piyush Tillman M.D. on 09/19/2021 at 13:22
[2021-09-19] MEDS: MIDAZOLAM 2 MG/2 ML VIAL IV (11:26)
[2021-09-19] MEDS: IOPAMIDOL 15 ML VIAL 3 ML INJ (11:29)
[2021-09-19] MEDS: BUPIVACAINE 0.25% (PF) VIAL 2 ML INJ (11:29)
[2021-09-19] MEDS: BETAMETHASONE 30 MG/5 ML MDV 6 MG INJ (11:30)
[2021-09-19] MEDS: DEXAMETHASONE 10 MG/ML VIAL 20 MG INJ (11:30)
--- NOTE | 2021-09-19 12:16 | P.PCN_ITS ---
Date/Time/Diagnoses Date of procedure: 09/19/21 Time of procedure: 12:16 Pre-procedure diagnosis: 1. HNP WITH RADICULAR FEATURES, 2. MULTILEVEL CENTRAL STENOSIS, Post-procedure diagnosis: same Procedure Notes Procedure: 1. FLUOROSCOPICALLY GUIDED CONTRAST CONTROLLED INTERLAMINAR EPIDURAL STEROID INJECTION - L3/4 Indications: Darian is referred by Dr. Jose for treatment of Bilateral Foraminal Stenosis L>R LE symptoms. Physician: Michael Tolbert Total Fluoroscopy time (seconds): 12 Total sedation minutes: 16 Complications: none Procedure in detail & Post-procedure care: FINDINGS Multilevel Central Spinal Stenosis with Nerve Root Compression DESCRIPTION OF PROCEDURE Fluoroscopically guided, contrast-controlled L3/4 translaminar epidural steroid injection. Following review of allergy and review of potential side effects and complications, including, but not necessarily limited to, infection, allergic reaction, local tissue breakdown, temporary as well as permanent nerve injury, paralysis, stroke and possible , the patient indicated that the patient understood and agreed to proceed. An informed consent document was signed by the patient, witnessed by a nurse, and placed in the patient's chart. Additionally, other treatment options including modalities, medications, and physical therapy were reviewed with the patient. After review of previous anaesthesic history and IV conscious sedation the patient was deemed safe to proceed with today?s procedure with IV conscious sedation as ASA class II designation. Safety time-out was performed to confirm patient ID, procedure to be performed and site of procedure. IV sedation was accomplished with a combination of 2mg of Versed was administered by the RN after DO order, titrated to patient comfort during the course of the procedure while the patient remained responsive to all verbal commands. In the prone position, following sterile prep and drape of the lumbar region, the L3/4 translaminar space was identified fluoroscopically. The skin was anesthetized via a 25-gauge, 1.5-inch needle with 1% lidocaine solution. At this point, a 22-gauge short bevel spinal needle was atraumatically introduced and advanced under fluoroscopic guidance into the region of the L3/4 translaminar space. Depth was confirmed on lateral view. Radiological data, including multiple fluoroscopic views of the lumbar spine, reveal a spinal needle at the L3/4 translaminar space. Lateral views then show placement of the needle in the epidural space. Subsequent views show contrast material flowing superiorly and inferiorly in the epidural space. No vascular or intrathecal uptake is observed. At this point, using loss of resistance technique with saline and air, the epidural space was entered. This was confirmed following negative aspiration with injection of approximately 1.5 cc of Isovue 200, showing excellent epidural flow without vascular or intrathecal uptake. At this point, 1cc of 1% lidocaine solution combined with 3cc or 20mg of dexamethasone and 6mg of betamethasone was injected without incident. The patient tolerated the procedure well without signs or symptoms of complications prior to transfer to the recovery area continued monitoring without incident. The patient was then transferred to the recovery area where they were observed for an appropriate period of time after the injection. The patient reported a VAS score of 6 prior to the procedure and a post- procedure VAS of 0. POST OP INSTRUCTIONS The patient was provided a Pain Log to continue to record their response to the target-specific procedure prior to follow-up visit with their referring physician. Additionally, specific post-injection care instructions and a contact number to our office were provided if concerns arise regarding possible complications associated with the procedure are suspected.
== END 2021-09-19 12:24 | disposition home or self-care (01) ==
LOC: RAD 10:51
PROVIDERS: PCP Internal Medicine; Referring Provider Physical Medicine & Rehabilitation; Visit Provider Physical Medicine & Rehabilitation
DX: M51.16 Intervertebral disc disorders with radiculopathy, lumbar region (principal); M48.061 Spinal stenosis, lumbar region without neurogenic claudication
CPT/HCPCS: 62323; 99152; J0702; J1100; J2250